=== PATIENT | male | born 1995 ===

== ENCOUNTER 2016-12-21 19:47 | Emergency (ER) | payer OTHER ==
[2016-12-21] MEDS ORDERED: LORAZEPAM 1 MG TABLET ONE (20:54)
[2016-12-21] MEDS ORDERED: OLANZAPINE 5 MG TABLET ONE (20:54)
== END 2016-12-21 21:07 | disposition home or self-care (01) ==
LOC: ED 19:47
DX: F15.988 Other stimulant use, unspecified with other stimulant-induced disorder (principal); R20.9 Unspecified disturbances of skin sensation; A15.9 Respiratory tuberculosis unspecified; F17.210 Nicotine dependence, cigarettes, uncomplicated
CPT/HCPCS: 99283 ×2; A9270 ×2